=== PATIENT | male | born 1980 | race Caucasian/White ===

== ENCOUNTER → 2019-10-28 | Outpatient (CLI) | payer MEDICARE, OTHER ==
[2019-10-30 08:26] LABS: TESTOSTERONE FREE (DIRECT) 17.5 pg/mL (6.8-21.5)
== END ==
LOC: OD 07:14
PROVIDERS: ATTEND Physician Assistant
DX: E29.1 Testicular hypofunction (principal)
CPT/HCPCS: 36415; 84402; 84403